=== PATIENT | female | born 2000 | race Caucasian/White ===

== ENCOUNTER 2022-11-23 08:40 | Emergency (ER) | payer MEDICAID ==
[~2022-11-23] VITALS: Ht 167.6 cm; Wt 81.6 kg
--- NOTE | 2022-11-23 08:42 | NUR ---
BIB SELF FROM HOME WITH C/O SNCOPE EPISODE, LOST OF HEARING, VOMMITING, AND GENERAL MALASE THIS MORNING. PT HAS HAD SOB, COUGH, AND PHLEGM, FOR 1XWK. PT STATES SHE WAS DIAGNOSED AND TREATED FOR A TONSILLAR INFECTION AND THE FLU AND WAS GIVEN TAMAFLU WITH ANTIBIOTICS 1XWK AGO. PT STATES SHE HAS HAD NAUSEA FOR 1XWK. HX - ASTHMA. PT IS AAX04, VSS, NAD, BREATHING IS EVEN AND UNLABORED, PT DOES HAVE A PRODUCTIVE COUGH. SAFETY PRECUATIONS AND COMFORT MEASURS ARE IN PLACE. PENDING MD LEWIS AND ORDERS.
[2022-11-23 08:46] VITALS: BP_SYST 132
--- NOTE | 2022-11-23 08:50 | NUR ---
Patient triaged and placed in waiting room. VSS and patient appears in no acute distress at this time. Accompanied by self, awaiting available bed, and MD notified of need for MSE.
--- NOTE | 2022-11-23 09:00 | NUR ---
Placed in room 7. Placed on color television console monitor, blood pressure machine and pulse oximeter. To gown for exam. Side rails up. Report given to KAEL JACKSON.
--- NOTE | 2022-11-23 09:10 | NUR ---
ER at bedside examining patient at 0910.
[2022-11-23] MEDS ORDERED: NACL 0.9% 1,000 ML IV ONE (09:15)
--- NOTE | 2022-11-23 09:17 | NUR ---
Patient brought in by self from home. Chief Complaint: near syncope while in the shower this am with reported "loss of hearing x seconds", and sore throat. Vomited x 1 this am after the shower. Medical History is positive for infuenza x1w. Completed Antibiotics and Tamiflu. Denies Allergies. Patient awake, alert, and oriented x3.
[2022-11-23 09:39] LABS: BASOPHILS # (AUTO) 0.1 K/uL (0.0-0.2); BASOPHILS % (AUTO) 0.8 % (0.0-2.0); EOSINOPHILS # (AUTO) 0.1 K/uL (0.0-0.4); EOSINOPHILS % (AUTO) 0.8 % (0.0-4.0); HEMATOCRIT 42.8 % (36-48); HEMOGLOBIN 14.9 g/dL (12.0-16.0); LYMPHOCYTES # (AUTO) 2.6 K/uL (1.0-5.5); LYMPHOCYTES % (AUTO) 30.8 % (20.5-51.5); MEAN CORPUSCULAR HEMOGLOBIN 30 pg (27-31); MEAN CORPUSCULAR HGB CONC 35 % (32-36); MEAN CORPUSCULAR VOLUME 85 fL (79.0-98.0); MONOCYTES # (AUTO) 0.3 K/uL (0.0-1.0); NEUTROPHILS # (AUTO) 5.4 K/uL (1.8-7.7); NEUTROPHILS % (AUTO) 63.6 % (40.0-70.0); PLATELET COUNT (AUTO) 271 K/uL (130-430); RED BLOOD CELL COUNT(AUTO) 5.02 MIL/uL (4.2-6.2); RED CELL DISTRIBUTION WIDTH 12.7 % (9.0-15.0); WHITE BLOOD COUNT (AUTO) 8.6 K/uL (4.8-10.8)
[2022-11-23 09:42] LABS: BILIRUBIN,URINE 1+ (NEGATIVE); COLOR,URINE YELLOW (YELLOW); GLUCOSE,URINE NEGATIVE (NEGATIVE); KETONES,URINE TRACE (NEGATIVE); LEUKOCYTE ESTERASE ,URINE 1+ (NEGATIVE); NITRITE, URINE NEGATIVE (NEGATIVE); PROTEIN URINE TRACE (NEGATIVE); UROBILINOGEN,URINE 0.2 (0.2-1.0)
[2022-11-23 09:44] LABS: BLOOD, URINE TRACE (NEGATIVE); CLARITY/URINE SLIGHTLY HAZY (CLEAR)
[2022-11-23 09:50] LABS: CREATININE 0.8 mg/dL (0.55-1.30)
[2022-11-23 10:01] LABS: ALBUMIN 3.5 g/dL (3.4-4.8); TOTAL BILIRUBIN 0.5 mg/dL (0.0-1.0)
[2022-11-23] MEDS ORDERED: CEPH-548 PO (11:05)
[2022-11-23 11:06] LABS: BACTERIA,URINE FEW /HPF (None Seen)
--- NOTE | 2022-11-23 11:07 | NUR ---
# 22 gauge angiocath placed to right antecubital administered by MICHAEL Melgar. Use of asceptic technique. Opsite placed over site. No evidence of infiltration noted. Patient tolerated well.
[2022-11-23 11:53] VITALS: BP_SYST 123
--- NOTE | 2022-11-23 14:38 | NUR ---
Fernie jarvis in [facility] - 11/23/22 at 1439 by CRISTOFER Discharged at 1152
--- NOTE | 2022-11-23 14:39 | NUR ---
Patient given written and verbal discharge instructions and verbalizes understanding. ER MD discussed with patient the results and treatment provided. Patient in stable condition. ID arm band removed. IV catheter removed intact and dressing applied, no active bleeding. Rx of given. Patient educated on pain management and to follow up with PMD. Opportunity for questions provided and answered. Medication side effect fact sheet provided. Dishcarged at 1152, stable.
== END 2022-11-23 11:52 | disposition home or self-care (01) ==
LOC: SED 08:40
DX: N39.0 Urinary tract infection, site not specified (principal); R55 Syncope and collapse; R42 Dizziness and giddiness; J45.909 Unspecified asthma, uncomplicated; Z79.899 Other long term (current) drug therapy
CPT/HCPCS: 99284; 96360; 80053; 81000; 84702; 85025; 86901; 36415; 93005; 81025; J7030

== ENCOUNTER 2023-06-07 18:49 | Emergency (ER) | payer MEDICAID ==
[~2023-06-07] VITALS: Ht 167.6 cm; Wt 81.6 kg
[~2023-06-07 18:49] MED LIST: CEPH-548 PO
[2023-06-07 19:44] VITALS: BP_SYST 135; PULSE 99; RESP 18; TEMP 97.6; O2SAT 100
[2023-06-07] MEDS ORDERED: ALBMDI INH (21:11)
[2023-06-07 21:20] VITALS: BP_SYST 131; PULSE 72; RESP 18; TEMP 98.5; O2SAT 100
== END 2023-06-07 21:19 | disposition home or self-care (01) ==
LOC: SED 18:49
DX: Z76.0 Encounter for issue of repeat prescription (principal); J45.909 Unspecified asthma, uncomplicated; Z79.899 Other long term (current) drug therapy
CPT/HCPCS: 99281

== ENCOUNTER 2023-07-06 16:34 | Emergency (ER) | payer MEDICAID ==
[~2023-07-06] VITALS: Ht 167.6 cm; Wt 68.0 kg
[~2023-07-06 16:34] MED LIST changes: +ALBMDI INH
[2023-07-06 16:45] VITALS: BP_SYST 136; PULSE 85; RESP 16; TEMP 98.2; O2SAT 99
[2023-07-06] MEDS ORDERED: ONDANSETRON HCL 4 MG/2 ML VIAL IVP ONE (17:15)
[2023-07-06] MEDS ORDERED: NACL 0.9% 1,000 ML IV ONE (17:15)
[2023-07-06 17:36] LABS: BASOPHILS % (AUTO) 0.4 % (0.0-2.0); EOSINOPHILS # (AUTO) 0.1 K/uL (0.0-0.4); EOSINOPHILS % (AUTO) 1.4 % (0.0-4.0); HEMATOCRIT 38.8 % (36-48); HEMOGLOBIN 13.3 g/dL (12.0-16.0); LYMPHOCYTES # (AUTO) 2.1 K/uL (1.0-5.5); LYMPHOCYTES % (AUTO) 33.4 % (20.5-51.5); MEAN CORPUSCULAR HEMOGLOBIN 29 pg (27-31); MEAN CORPUSCULAR HGB CONC 34 % (32-36); MEAN CORPUSCULAR VOLUME 86 fL (79.0-98.0); MONOCYTES # (AUTO) 0.3 K/uL (0.0-1.0); MONOCYTES % (AUTO) 4.9 % (1.7-9.3); NEUTROPHILS # (AUTO) 3.8 K/uL (1.8-7.7); NEUTROPHILS % (AUTO) 59.9 % (40.0-70.0); PLATELET COUNT (AUTO) 186 K/uL (130-430); RED BLOOD CELL COUNT(AUTO) 4.52 MIL/uL (4.2-6.2); RED CELL DISTRIBUTION WIDTH 13.1 % (9.0-15.0); WHITE BLOOD COUNT (AUTO) 6.4 K/uL (4.8-10.8)
[2023-07-06 17:51] LABS: CALCIUM 8.8 mg/dL (8.4-11.0); CREATININE 0.55 mg/dL (0.55-1.30); POTASSIUM 3.1 mmol/L (3.5-5.1); TOTAL BILIRUBIN 0.4 mg/dL (0.0-1.0); TOTAL PROTEIN, SERUM 6.5 g/dL (6.4-8.3)
[2023-07-06 17:58] LABS: BILIRUBIN,URINE NEGATIVE (NEGATIVE); BLOOD, URINE NEGATIVE (NEGATIVE); CLARITY/URINE CLEAR (CLEAR); COLOR,URINE YELLOW (YELLOW); GLUCOSE,URINE NEGATIVE (NEGATIVE); KETONES,URINE NEGATIVE (NEGATIVE); LEUKOCYTE ESTERASE ,URINE NEGATIVE (NEGATIVE); NITRITE, URINE NEGATIVE (NEGATIVE); PROTEIN URINE NEGATIVE (NEGATIVE)
[2023-07-06] MEDS ORDERED: POTASSIUM CHLORIDE 20 MEQ TAB.PRT.SR PO ONE (18:45)
[2023-07-06] MEDS ORDERED: DOXY1TAB3 PO (19:43)
[2023-07-06 19:51] VITALS: BP_SYST 125; PULSE 72; RESP 16; TEMP 98.1; O2SAT 96
== END 2023-07-06 19:51 | disposition home or self-care (01) ==
LOC: SED 16:34
DX: O21.0 Mild hyperemesis gravidarum (principal); Z3A.10 10 weeks gestation of pregnancy; E78.5 Hyperlipidemia, unspecified; J45.909 Unspecified asthma, uncomplicated; Z79.899 Other long term (current) drug therapy
CPT/HCPCS: 99285; 96374; 76801; 96361; 80053; 84702; 83690; 85025; 36415; 81003; J2405; J7030

== ENCOUNTER 2023-08-15 00:56 | Emergency (ER) | payer MEDICAID ==
[~2023-08-15] VITALS: Ht 167.6 cm; Wt 72.6 kg
[~2023-08-15 00:56] MED LIST changes: +DOXY1TAB3 PO
[2023-08-15 01:02] VITALS: BP_SYST 115; PULSE 71; RESP 14; TEMP 96.9; O2SAT 100
[2023-08-15 01:58] LABS: BILIRUBIN,URINE 2+ (NEGATIVE); BLOOD, URINE NEGATIVE (NEGATIVE); COLOR,URINE YELLOW (YELLOW); GLUCOSE,URINE NEGATIVE (NEGATIVE); KETONES,URINE 2+ (NEGATIVE); LEUKOCYTE ESTERASE ,URINE NEGATIVE (NEGATIVE); NITRITE, URINE NEGATIVE (NEGATIVE); PROTEIN URINE TRACE (NEGATIVE); UROBILINOGEN,URINE 0.2 (0.2-1.0)
[2023-08-15 02:12] LABS: CLARITY/URINE SLIGHTLY CLOUDY (CLEAR)
[2023-08-15 02:15] LABS: BACTERIA,URINE None Seen /HPF (None Seen); RBC,URINE 0-3 /HPF (0-3); WBC,URINE 0-3 /HPF (0-3)
[2023-08-15] MEDS ORDERED: ACETAMINOPHEN 500 MG TABLET PO ONE ×2 (02:15→02:20)
[2023-08-15 02:16] LABS: CALCIUM OXALATE CRYSTALS,UR 0-10 /HPF (None Seen); MUCUS,URINE 1+ /LPF (None Seen)
[2023-08-15] MEDS ORDERED: ACETAMINOPHEN 500 MG TABLET ONE (02:23)
[2023-08-15 03:10] VITALS: BP_SYST 128; PULSE 76; RESP 14; TEMP 96.9; O2SAT 100
== END 2023-08-15 02:25 | disposition home or self-care (01) ==
LOC: SED 00:56
DX: O26.811 Pregnancy related exhaustion and fatigue, first trimester (principal); Z3A.13 13 weeks gestation of pregnancy; J45.909 Unspecified asthma, uncomplicated; Z79.899 Other long term (current) drug therapy
CPT/HCPCS: 81000; 81001; 81015; 82962; 93005; 99284